=== PATIENT | male | born 2000 | race Caucasian/White ===

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

== ENCOUNTER 2018-10-05 20:50 | Emergency (ER) | payer OTHER, SELFPAY ==
[2018-10-05 20:51] VITALS: BP 164/93; PULSE 105; RESP 16; TEMP 36.7; O2SAT 97; BMI 47.3
--- NOTE | 2018-10-05 21:00 | RAD_ITS ---
STUDY: X-RAY - LEFT RADIUS AND ULNA REASON FOR EXAM: Male, 18 years old. Posttraumatic pain TECHNIQUE: 2 view(s) of the forearm. COMPARISON: None. FINDINGS: There is no demonstrated soft tissue swelling. Normal visualized radius. Normal visualized ulna. RAD/Forearm 2 Views IMPRESSION: Normal x-ray examination of the radius and ulna. Electronically Signed: Og Garcia MD at 21:14 EDT , Service support ,
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
[2018-10-05] MEDS: HYDROcodone Bitartrate/Apap 5/325 Tablet PO (21:04)
[2018-10-05] MEDS: Naproxen 500 MG Tablet PO (21:04)
--- NOTE | 2018-10-05 21:20 | RAD_ITS ---
STUDY: X-RAY - LEFT HUMERUS REASON FOR EXAM: Male, 18 years old. Pain TECHNIQUE: 2 view(s) of the humerus. COMPARISON: None. FINDINGS: Normal visualized humerus. There is no demonstrated fracture or osseous destructive process. There is no demonstrated soft tissue abnormality. RAD/Humerus min 2 Views IMPRESSION: Normal x-ray examination of the humerus. Electronically Signed: Og Garcia MD at 21:37 EDT , Service support ,
[2018-10-05 21:31] VITALS: RESP 14
== END 2018-10-05 21:33 | disposition home or self-care (01) ==
PROVIDERS: Emergency Provider Emergency Medicine
DX: S40.022A Contusion of left upper arm, initial encounter (principal); F17.200 Nicotine dependence, unspecified, uncomplicated; V86.55XA Driver of 3- or 4- wheeled all-terrain vehicle (ATV) injured in nontraffic accident, initial encounter; Y93.I9 Activity, other involving external motion; Y92.89 Other specified places as the place of occurrence of the external cause; Y99.8 Other external cause status
CPT/HCPCS: 73060; 73090; 99283